=== PATIENT | male | born 1965 | race Caucasian/White ===

== ENCOUNTER → 2016-12-04 | Outpatient (REF) | payer BC ==
[2016-12-04 16:12] LABS: ALBUMIN 5.1 g/dL (3.4-5.0); ANION GAP 18.7 MEQ/L (3-15); CALCULATED IONIZED CALCIUM 4.3 mg/dL (3.8-4.6); TOTAL PROTEIN 8.5 g/dL (6.4-8.5)
== END ==
LOC: LAB 14:44
PROVIDERS: ATTEND Family Medicine
DX: Z87.448 Personal history of other diseases of urinary system (principal); Z13.6 Encounter for screening for cardiovascular disorders; R73.09 Other abnormal glucose
CPT/HCPCS: 80053; 80061; 83036